=== PATIENT | female | born 1965 ===

== ENCOUNTER 2018-02-17 12:39 | Emergency (ER) | payer MEDICARE, MEDICAID ==
[2018-02-17 12:39] VITALS: BMI 34.3
[2018-02-17 12:56] VITALS: RESP 18; TEMP 98.3
--- NOTE | 2018-02-17 13:00 | ED PDOC ---
Arrival/HPI - General Chief Complaint: Chest Pain Time Seen by Provider: 02/17/18 12:55 Historian: Patient - History of Present Illness Narrative History of Present Illness (Text): 02/17/18 13:04 52 year old female, with a past medical history that includes ovarian cyst and total hysterectomy, presents to the emergency department with left-sided chest pain, since 4 days prior. Patient states pain began Friday morning upon waking up. Patient also states the pain is constant and exacerbated by movement. Patient denies shortness of breath, denies dyspnea with exertion. Denies pleuritic pain. Denies leg pain or swelling. No hemoptysis. No cough. No lightheadedness or dizziness. No known injury or trauma. 02/17/18 17:23 Time/Duration: < week Symptom Onset: Gradual Symptom Course: Unchanged Quality: Aching, Pressure Activities at Onset: Light Context: Home ( ) Past Medical History - Provider Review Nursing Documentation Reviewed: Yes - Cardiac Hx Pacemaker: No - Pulmonary Hx Respiratory Disorders: No - Neurological Hx Paralysis: No - HEENT Hx HEENT Disorder: No - Renal Hx Renal Disorder: No - Endocrine/Metabolic Hx Endocrine Disorders: No - Hematological/Oncological Hx Blood Transfusions: Yes (2014) Hx Blood Transfusion Reaction: Yes (FEVER) - Integumentary Hx Dermatological Disorder: No - Musculoskeletal/Rheumatological Hx Musculoskeletal Disorders: No - Gastrointestinal Hx Gastrointestinal Disorders: No - Genitourinary/Gynecological Hx Genitourinary Disorders: Yes Hx Ovarian Cancer: No Hx Uterine Cancer: Yes Other/Comment: past surgery for ovarian tumor and total hysterectomy hx urinary retenetion. endometrial CA - Psychiatric Hx Emotional Abuse: No Hx Physical Abuse: No Hx Substance Use: No - Surgical History Hx Hysterectomy: Yes Other/Comment: fibroma . past sx for removal of ovarian mass and total hysterectomy insertion pelvic drainage tube - Anesthesia Hx Anesthesia: Yes Hx Anesthesia Reactions: No Hx Malignant Hyperthermia: No - Suicidal Assessment Feels Threatened In Home Enviroment: No Family/Social History - Physician Review Nursing Documentation Reviewed: Yes Family/Social History: No Known Family HX Smoking Status: Never Smoked Hx Alcohol Use: No Hx Substance Use: No Allergies/Home Meds Allergies/Adverse Reactions: Allergies No Known Allergies Allergy (Verified 02/14/14 11:04) Home Medications: Home Meds Medication Instructions Recorded Confirmed Lisinopril [Zestril] 5 mg PO DAILY 02/21/16 08/26/16 Review of Systems - Review of Systems Constitutional: absent: Fatigue, Fevers ENT: absent: Sore Throat Respiratory: absent: SOB, Cough, Wheezing Cardiovascular: Chest Pain. absent: Palpitations, Edema, Calf Pain, Orthopnea, Syncope Gastrointestinal: absent: Abdominal Pain Genitourinary Female: absent: Dysuria Musculoskeletal: absent: Back Pain, Neck Pain Skin: absent: Rash Neurological: absent: Headache, Dizziness, Focal Weakness Physical Exam - Physical Exam Narrative Physical Exam (Text): 02/17/18 13:10 Head: Atraumatic. Normocephalic. Eyes: PERRL. EOMI. Conjunctivae are not pale. ENT: Mucous membranes are moist and intact. Oropharynx is clear and symmetric. Neck: Supple. Full ROM. No JVD. No midline tenderness. No neck swelling. Cardiovascular: Regular rate. Regular rhythm. No murmurs, rubs, or gallops. Distal pulses are 2+ and symmetric. BP and pulse equal in both upper extremities. Pulmonary/Chest: No evidence of respiratory distress. Clear to auscultation bilaterally. No wheezing, rales or rhonchi. Focal point tenderness to left anterior chest wall, no crepitus or masses or erythema palpated. Abdominal: Soft and non-distended. There is no tenderness. No rebound, guarding, or rigidity. No organomegaly. Good bowel sounds. Back: No CVA tenderness. Extremities: No edema. No cyanosis. No clubbing. Full range of motion in all extremities. No calf tenderness. Skin: Skin is warm and dry. No petechiae. No purpura. No vesicular rash. Neurological: Alert, awake, and oriented. Motor and sensory exam intact. Psychiatric: Good eye contact. Normal interaction, affect, and behavior. Vital Signs Reviewed: Yes Vital Signs Temp Pulse Resp BP Pulse Ox 02/17/18 17:15 78 18 144/62 100 02/17/18 12:39 98.3 F 69 18 164/63 H 99 Temperature: Afebrile Pulse: Regular Appearance: Positive for: Well-Appearing, Non-Toxic Pain Distress: Mild Mental Status: Positive for: Alert and Oriented X 3 Medical Decision Making ED Course and Treatment: 02/17/18 13:00 Impression: 52 year old female, presents to the emergency department with left- sided chest pain Prior Visits: Notes and results from previous visits were reviewed. Progress Notes: Patient has had pain for several days, no know injury but on exam pain is worse with movement and palpable. She denies shortness of breath. She does have prior hx of DVT several years ago, currently not on anticoagulation. No calf pain or swelling noted. EKG unremarkable. History of chest pain is not typical of cardiac chest pain and troponin unremarkable after several days of pain. Ddimer elevated. As she has prior hx of dvt, cancer, ct angio ordered. No PE noted on ct. Daughter present at bedside and patient and family informed of results and labs and imaging studies reviewed. Patient's PMD has been paged so results may be reviewed. As ct angio unremarkable, and patient with palpable chest pain, will d/c with instructions to take ibuprofen, f/u with pmd. 02/17/18 17:27 - Lab Interpretations Lab Results: 02/17/18 13:25 02/17/18 13:25 Lab Results 02/17/18 13:25: Sodium 144, Potassium 4.0, Chloride 107, Carbon Dioxide 26, Anion Gap 15, BUN 12, Creatinine 1.0, Est GFR ( Amer) > 60, Est GFR (Non- Af Amer) 58, Random Glucose 99, Calcium 9.3, Total Bilirubin 0.5, AST 44 H, ALT 37, Alkaline Phosphatase 106, Lactate Dehydrogenase 507, Total Creatine Kinase 97, Troponin I 0.01, Total Protein 8.2, Albumin 4.1, Globulin 4.1, Albumin/ Globulin Ratio 1.0 L 02/17/18 13:25: PT 10.9, INR 0.96, APTT 30.2, D-Dimer, Quantitative 301 H 02/17/18 13:25: WBC 8.6 D, RBC 4.63, Hgb 13.6, Hct 39.8, MCV 86.0, MCH 29.4, MCHC 34.2, RDW 14.3, Plt Count 256, MPV 10.3, Gran % 61.9, Lymph % (Auto) 27.6, Brantley % (Auto) 6.8 H, Eos % (Auto) 3.5, Baso % (Auto) 0.2, Gran # 5.29, Lymph # ( Auto) 2.4, Brantley # (Auto) 0.6, Eos # (Auto) 0.3, Baso # (Auto) 0.02 - RAD Interpretation Narrative RAD Interpretations (Text): 02/17/2018 11:33 Chest X-ray reviewed by radiologist, shows: No active disease. Dr. Jacob Nichols Radiology Orders: 02/17/18 13:00 CHEST PORTABLE [RAD] Stat 02/17/18 14:40 ANGIO CHEST PE PROTOCOL [CT] Stat - EKG Interpretation EKG Interpretation (Text): EKG at 1245 normal sinus rhythm rate of [address] elevations Interpreted by ED Physician: Yes Type: 12 lead EKG - Scribe Statement The provider has reviewed the documentation as recorded by the Scribe Dorian Conley All medical record entries made by the Scribe were at my direction and personally dictated by me. I have reviewed the chart and agree that the record accurately reflects my personal performance of the history, physical exam, medical decision making, and the department course for this patient. I have also personally directed, reviewed, and agree with the discharge instructions and disposition. Disposition/Present on Arrival - Present on Arrival Any Indicators Present on Arrival: Yes History of DVT/PE: Yes History of Uncontrolled Diabetes: No Urinary Catheter: No History of Decub. Ulcer: No History Surgical Site Infection Following: None - Disposition Have Diagnosis and Disposition been Completed?: Yes Diagnosis: Chest pain, Muscle strain Disposition: HOME/ ROUTINE Disposition Time: 12:45 Patient Plan: Discharge Condition: GOOD Discharge Instructions (ExitCare): Muscle Strain (DC), Chest Pain (ED) Additional Instructions: For any fevers, cough, shortness of breath, rash, leg pain or swelling, abdominal pain, numbness or weakness, headaches, persistent or worsening of any symptoms, get rechecked. Follow-up with your physician in 1-2 days. Take ibuprofen as needed for pain as directed. Referrals: Miguel Robertson MD [Primary Care Provider] - Follow up with primary Forms: [employer] (B[place]ian)
--- NOTE | 2018-02-17 13:27 | RAD ---
Date of service: 02/17/2018 HISTORY: chest pain, left sided COMPARISON: No prior. FINDINGS: LUNGS: No active pulmonary disease. PLEURA: No significant pleural effusion identified, no pneumothorax apparent. CARDIOVASCULAR: Normal. OSSEOUS STRUCTURES: No significant abnormalities. VISUALIZED UPPER ABDOMEN: Normal. OTHER FINDINGS: None. IMPRESSION: No active disease.
[2018-02-17 13:55] LABS: INR 0.96; PARTIAL THROMBOPLASTIN TIME 30.2 Seconds (25.1-36.5); PROTHROMBIN TIME 10.9 SECONDS (9.4-12.5)
[2018-02-17 13:57] LABS: BASO # 0.02 K/mm3 (0.0-2.0); BASO % 0.2 % (0.0-3.0); EOS # 0.3 (0.0-0.7); EOS % 3.5 % (1.5-5.0); GRAN # 5.29 (1.4-6.5); GRAN % 61.9 % (50.0-68.0); HEMOGLOBIN 13.6 g/dL (12.0-16.0); LYMPH # 2.4 (1.2-3.4); LYMPH % 27.6 % (22.0-35.0); MEAN CORPUSCULAR HEMOGLOBIN 29.4 pg (25.0-35.0); MEAN CORPUSCULAR HGB CONC 34.2 g/dl (31.0-37.0); MEAN PLATELET VOLUME 10.3 fl (7.0-11.0); MONO # 0.6 (0.1-0.6); MONO % 6.8 % (1.0-6.0); RBC 4.63 10^6/uL (3.5-6.1); RED CELL DISTRIBUTION WIDTH 14.3 % (11.5-14.5); WHITE BLOOD COUNT 8.6 10^3/ul (4.5-11.0)
[2018-02-17 14:26] LABS: BLOOD UREA NITROGEN 12 mg/dL (7-21); GFR AFRICAN-AMERICAN > 60; GFR NON-AFRICAN AMERICAN 58
[2018-02-17 14:27] LABS: ALBUMIN 4.1 g/dL (3.0-4.8); CALCIUM 9.3 mg/dL (8.4-10.5)
[2018-02-17 14:28] LABS: ALT/SGPT 37 U/L (7-56); AST/SGOT 44 U/L (14-36)
[2018-02-17 14:29] LABS: TROPONIN I 0.01 ng/mL
[2018-02-17] MEDS ORDERED: Iohexol 350 MG/100 ML VIAL ONE (14:53)
--- NOTE | 2018-02-17 15:32 | CARD ---
APPROVED REPORT Date of service: 02/17/2018 EKG Measurement Heart [id number] <Conclusion> Normal sinus rhythm Normal ECG
--- NOTE | 2018-02-17 15:51 | CT ---
Date of service: 02/17/2018 PROCEDURE: CT Chest with contrast (Pulmonary Angiogram) HISTORY: r/o PE COMPARISON: None available. TECHNIQUE: Axial computed tomography images were obtained of the chest in the pulmonary arterial phase of enhancement. Coronal and sagittal reformatted images were created and reviewed. Intravenous contrast dose: 100 cc of Omni 350 Radiation dose: Total exam DLP = 456 mGy-cm. This CT exam was performed using one or more of the following dose reduction techniques: Automated exposure control, adjustment of the mA and/or kV according to patient size, and/or use of iterative reconstruction technique. FINDINGS: PULMONARY ARTERIES: Unremarkable. No pulmonary embolism. AORTA: No acute findings. No thoracic aortic aneurysm. LUNGS: Unremarkable. No nodule, mass or pulmonary consolidation. PLEURAL SPACES: Unremarkable. No effusion or pneumothorax. HEART: Unremarkable. No cardiomegaly. No significant pericardial effusion. LYMPH NODES: No lymphadenopathy. BONES, CHEST WALL: Unremarkable. No fracture or destructive lesion OTHER FINDINGS: Unremarkable. IMPRESSION: Unremarkable CT pulmonary angiogram. No pulmonary embolus.
[2018-02-17 17:17] VITALS: BP 144/62; PULSE 78; O2SAT 100
== END 2018-02-17 17:21 | disposition home or self-care (01) ==
LOC: ED 12:39
DX: R07.9 Chest pain, unspecified (principal); S29.011A Strain of muscle and tendon of front wall of thorax, initial encounter; X58.XXXA Exposure to other specified factors, initial encounter
CPT/HCPCS: 71045; 71275; 80053; 82550; 83615; 84484; 85025; 85378; 85610; 85730; 93005; 99283; Q9967

== ENCOUNTER 2018-07-21 05:13 | Outpatient (CLI) | payer MEDICARE, MEDICAID | END 2018-07-21 05:14 | disposition home or self-care (01) | LOC: PET-BROA 05:13 ==

== ENCOUNTER 2018-07-22 12:05 | Outpatient (CLI) | payer MEDICARE, MEDICAID | END 2018-07-22 12:06 | disposition home or self-care (01) | LOC: OPLAB 12:05 | DX: D64.9 Anemia, unspecified (principal); E78.5 Hyperlipidemia, unspecified; E83.40 Disorders of magnesium metabolism, unspecified; M81.0 Age-related osteoporosis without current pathological fracture ==

== ENCOUNTER 2018-08-12 11:59 | Outpatient (CLI) | payer MEDICARE, MEDICAID | END 2018-08-12 12:00 | disposition home or self-care (01) | LOC: OPLAB 11:59 | DX: D64.9 Anemia, unspecified (principal); E78.5 Hyperlipidemia, unspecified; E83.40 Disorders of magnesium metabolism, unspecified; M81.0 Age-related osteoporosis without current pathological fracture ==

== ENCOUNTER 2018-09-02 12:14 | Outpatient (CLI) | payer MEDICARE, MEDICAID | END 2018-09-02 12:15 | disposition home or self-care (01) | LOC: OPLAB 12:14 ==

== ENCOUNTER 2018-09-23 13:17 | Outpatient (CLI) | payer MEDICARE, MEDICAID | END 2018-09-23 13:18 | disposition home or self-care (01) | LOC: OPLAB 13:17 ==

== ENCOUNTER 2018-10-14 13:28 | Outpatient (CLI) | payer MEDICARE, MEDICAID | END 2018-10-14 13:29 | disposition home or self-care (01) | LOC: OPLAB 13:28 ==

== ENCOUNTER 2018-11-04 12:36 | Outpatient (CLI) | payer MEDICARE | END 2018-11-04 12:37 | disposition home or self-care (01) | LOC: OPLAB 12:36 ==

== ENCOUNTER 2018-11-06 09:28 | Outpatient (CLI) | payer MEDICARE | END 2018-11-06 09:29 | disposition home or self-care (01) | LOC: CARDIO 09:28 ==

== ENCOUNTER 2018-11-25 13:24 | Outpatient (CLI) | payer MEDICARE, MEDICAID | END 2018-11-25 13:25 | disposition home or self-care (01) | LOC: OPLAB 13:24 ==